=== PATIENT | female | born 1965 | race Caucasian/White ===

== ENCOUNTER 2022-05-19 00:46 | Emergency (ER) | payer MEDICAID ==
[~2022-05-19] VITALS: Ht 157.5 cm; Wt 65.0 kg
[~2022-05-19 00:46] MED LIST: HYDR-523 PO; OMEP20CA14 PO
[2022-05-19] MEDS ORDERED: ASPIRIN 81MG EC TABLET PO ONE (01:30)
[2022-05-19 01:31] VITALS: BP 118/86
[2022-05-19 02:37] LABS: BASOPHILS % 0.7 % (0.0-2.0); EOSINOPHILS % 2.5 % (0.0-5.0); HEMATOCRIT. 34.4 % (36.0-48.0); HEMOGLOBIN. 11.9 g/dL (12.0-16.0); MEAN CORPUSCULAR HEMOGLOBIN 30.4 pg (28.0-32.0); MEAN CORPUSCULAR VOLUME 87.8 fL (81.0-99.0); MEAN PLATELET VOLUME 8.9 fl (7.4-10.4); NEUTROPHILS % 53.8 % (40.0-76.0); PLATELET 216 x1000/uL (130-400); RED BLOOD CELL COUNT 3.92 mill/uL (4.2-5.4); RED CELL DISTRIBUTION WIDTH 13.7 % (11.6-14.6)
[2022-05-19 02:46] LABS: CHLORIDE 110 mEq/L (98-107)
[2022-05-19 02:50] LABS: HCG SCREEN NEGATIVE
[2022-05-19] MEDS ORDERED: POTASSIUM CHLORIDE 20MEQ TABLET SR PO NR (03:00)
[2022-05-19] MEDS ORDERED: ONDA4TAB50 MT (03:30)
== END 2022-05-19 03:39 | disposition home or self-care (01) ==
LOC: ER 00:46
DX: R11.0 Nausea (principal); E87.6 Hypokalemia; E78.00 Pure hypercholesterolemia, unspecified; Z87.19 Personal history of other diseases of the digestive system
CPT/HCPCS: 36415; 71045; 80053; 84484; 84703; 85025; 93005; 99285